=== PATIENT | female | born 1935 | race Caucasian/White ===

== ENCOUNTER 2017-02-04 15:52 | Inpatient (IN) ==
[2017-02-04] MEDS ORDERED: TYLENOL PO PRN (17:38)
[2017-02-04] MEDS ORDERED: NITROGLYCERIN SL PRN (17:38)
[2017-02-04] MEDS ORDERED: SALINE LOCK IV FLUID XX ONE (17:38)
[2017-02-04] MEDS ORDERED: ZOFRAN IV PRN ×2 (17:38→17:42)
[2017-02-04] MEDS ORDERED: NS 1,000 ML IV SCH (17:42)
[2017-02-04] MEDS ORDERED: APRESOLINE IV PRN (17:44)
[2017-02-04 18:32] LABS: HEMATOCRIT 29.6 % (37.0-47.0); HEMOGLOBIN 9.7 g/dL (12.0-16.0); MCH 32.6 PG (27-31); MCHC 32.8 g/dL (33-37); MCV 99.3 FL (81-99); MPV 10.5 FL (7.4-10.4); RBC 2.98 XMIL (4.2-5.4)
[2017-02-04] MEDS: LASIX IV SCH (18:40)
[2017-02-04] MEDS: ASPIRIN EC PO SCH (18:41)
[2017-02-04] MEDS: NITROGLYCERIN TOP SCH (18:41)
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
[2017-02-04 19:05] LABS: ALBUMIN 4.1 g/dL (3.5-5.0); CALCIUM 9.5 mg/dL (8.8-10.2); TOTAL BILIRUBIN 0.6 mg/dL (0.20-1.00); TOTAL PROTEIN 6.9 g/dL (6.3-8.3)
[2017-02-04] MEDS: DUONEB (A & A) INH PRN ×2 (20:06→23:31)
[2017-02-04] MEDS: NORVASC PO SCH (21:20)
--- NOTE | 2017-02-04 21:47 | EKG Report ---
Test Performed on : 02/04/2017 7:58:32 PM Test Reason : CP Blood Pressure : / mmHG Vent. Rate : 053 BPM Atrial Rate : 053 BPM P-R Int : 172 ms QRS Dur : 094 ms QT Int : 532 ms P-R-T Axes : 073 065 -58 degrees QTc Int : 499 ms Sinus bradycardia. Incomplete right bundle branch block Anterior infarct , age undetermined ST \T\ T wave abnormality, consider lateral ischemia Abnormal ECG When compared with ECG of 18-JUN-2014 21:03, Incomplete right bundle branch block is now present Confirmed by Jose Villagran MD ([id number]) on 03/05/2017 7:25:49 PM
[2017-02-05] MEDS: NITROGLYCERIN TOP SCH ×5 (00:16→18:55)
--- NOTE | 2017-02-05 05:56 | EKG Report ---
Test Performed on : 02/05/2017 05:09:54 AM Test Reason : atrial fibrillation/CHF/ASHD Blood Pressure : / mmHG Vent. Rate : 052 BPM Atrial Rate : 052 BPM P-R Int : 192 ms QRS Dur : 096 ms QT Int : 562 ms P-R-T Axes : 075 052 214 degrees QTc Int : 522 ms Sinus bradycardia. Incomplete right bundle branch block Anterior infarct (cited on or before 04-FEB-2017) ST \T\ T wave abnormality, consider lateral ischemia Prolonged QT Abnormal ECG When compared with ECG of 04-FEB-2017 19:58, (Unconfirmed) No significant change was found Confirmed by Jose Villagran MD ([id number]) on 03/05/2017 7:23:55 PM
[2017-02-05] MEDS: LASIX IV SCH ×2 (06:10→18:00)
[2017-02-05] MEDS: PRILOSEC PO SCH (06:10)
[2017-02-05 06:32] LABS: FREE T4 1.34 ng/dL (0.93-1.70)
[2017-02-05 06:43] LABS: HEMATOCRIT 25.6 % (37.0-47.0); HEMOGLOBIN 8.5 g/dL (12.0-16.0); MCH 32.1 PG (27-31); MCHC 33.2 g/dL (33-37); MCV 96.6 FL (81-99); MPV 10.6 FL (7.4-10.4); RBC 2.65 XMIL (4.2-5.4)
[2017-02-05 06:48] LABS: AGAP 11; ALBUMIN 3.5 g/dL (3.5-5.0); ALKALINE PHOSPHATASE 52 U/L (32-104); BUN 17 mg/dL (8-22); CALCIUM 8.8 mg/dL (8.8-10.2); CHLORIDE 102 mmol/L (98-107); COSMO 277; GOT 40 U/L (10-30); GPT 33 U/L (10-36); HDL 60 mg/dL (45-65); LDL 81 mg/dL; SODIUM 138 mmol/L (136-145); TCO2 25 mmol/L (25-35); TOTAL PROTEIN 5.9 g/dL (6.3-8.3); TRIGLYCERIDES 41 mg/dL (35-135); VLDL 8 mg/dL
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
[2017-02-05] MEDS: DUONEB (A & A) INH PRN (07:22)
[2017-02-05] MEDS ORDERED: POTASSIUM CHLORIDE 20% LIQUID PO ONE (07:28)
--- NOTE | 2017-02-05 08:20 | PROGRESS NOTE ---
DATE: 02/05/2017 SUBJECTIVE: Patient notes she is feeling a little bit better. She is having no real cough or congestion. She is lying in the bed with minimal respiratory distress. Denies any chest pains, palpitations currently. OBJECTIVE: Vital Signs: Reviewed. Temperature 98 degrees, pulse 51, respiratory 20, BP 156/58, sat 98% on room air. General: Patient is awake, alert, currently in no real respiratory distress. Neck: Supple. CV: Regular rate. Chest: Relatively clear. No apparent wheezing. Slightly improved air movement from yesterday's exam. Abdomen: Soft. Extremities: Moves all extremities. Trace edema. LABS: Potassium 3.0, hemoglobin 8 and hematocrit 25. BNP 7534. ASSESSMENT: 1. Anemia of chronic disease. Hemoglobin has dropped slightly from 9.7 to 8.5. We will continue to follow. We will recheck this around noon. Certainly if her hemoglobin and hematocrit continues to drop, we will need to consider Gastroenterology evaluation. At this point, this could simply be delusional effect. 2. Hypothyroidism. TSH is elevated and the patient is not normally on Synthroid. We will start 50 mcg of Synthroid and follow. 3. Known coronary artery disease. She is status post drug-eluting stent. Dr. Hinojosa feels as though she needs to be on aspirin and Plavix. We will start aspirin this morning and continue Plavix. 4. We will continue Lasix. Recheck her sodium, potassium in the a.m. Further orders as needed. I appreciate Dr. Hinojosa's assistance. cc: Praveen Espinosa MD
[2017-02-05] MEDS: APRESOLINE PO SCH ×3 (08:56→18:00)
[2017-02-05] MEDS: PLAVIX PO SCH (08:56)
[2017-02-05] MEDS: NORVASC PO SCH ×2 (08:56→20:40)
[2017-02-05] MEDS: ASPIRIN EC PO SCH (08:57)
[2017-02-05 14:21] LABS: HEMATOCRIT 30.1 % (37.0-47.0); HEMOGLOBIN 9.7 g/dL (12.0-16.0); MCH 31.3 PG (27-31); MCHC 32.2 g/dL (33-37); MCV 97.1 FL (81-99); RBC 3.1 XMIL (4.2-5.4)
--- NOTE | 2017-02-05 14:35 | ECHO REPORT ---
ORDER DATE: 02/05/2017 INDICATION: Coronary artery disease, CHF, status post MN with stents placed 3 weeks ago. FINDINGS: 1. Right atrium is mildly enlarged at 4.2 cm. 2. Mild to moderate tricuspid regurgitation. RV systolic pressure of 63 suggesting pulmonary hypertension. 3. Normal RV size and systolic function. 4. Mild pulmonic insufficiency. 5. Mild left atrial enlargement at 4.8 cm. 6. No mitral prolapse. There does appear to be [id number] mitral regurgitation. 7. Normal LV size, end-diastolic dimension of 4.7 cm. There is normal wall thicknesses with a posterior and interventricular septal thickness at 0.9 and 1.0 cm respectively. Normal LV systolic function. The estimated EF is in the 60-65% range. I do not see any clear evidence of segmental wall motion abnormalities. 8. Aortic valve opens well. It is trileaflet. Mild aortic insufficiency. No evidence of stenosis. 9. Aorta appears normal in visualized segments. 10. No pericardial effusion is identified. There is a pleural effusion seen. cc: MD Eran Reich MD Gregory S. Cheatham, MD
[2017-02-05 19:25] LABS: BILIRUBIN URINE NEGATIVE (NEGATIVE); BLOOD URINE NEGATIVE (NEGATIVE); CLARITY CLEAR (CLEAR); COLOR YELLOW; GLUCOSE URINE NEGATIVE (NEGATIVE); LEUKOCYTES URINE 2+ (NEGATIVE); NITRITE URINE NEGATIVE (NEGATIVE); PROTEIN URINE NEGATIVE (NEGATIVE); UROBILINOGEN URINE 4+(12 mg/dL)
[2017-02-05 19:26] LABS: URINE CAST NONE SEEN /LPF; URINE CRYSTAL NONE SEEN /HPF; URINE CULTURE PL NEEDED? YES; URINE EPITHELIAL CELLS <10 /HPF (<10); URINE SOURCE CLEAN CATCH; URINE WBC 20-40 /HPF (<10)
[2017-02-06] MEDS: NITROGLYCERIN TOP SCH ×4 (00:05→18:09)
[2017-02-06] MEDS: LASIX IV SCH ×3 (06:03→19:53)
[2017-02-06] MEDS: PRILOSEC PO SCH (06:03)
[2017-02-06] MEDS: SYNTHROID PO SCH (06:04)
[2017-02-06 06:45] LABS: HEMATOCRIT 28.8 % (37.0-47.0); HEMOGLOBIN 9.4 g/dL (12.0-16.0); MCH 31.8 PG (27-31); MCHC 32.6 g/dL (33-37); MCV 97.3 FL (81-99); MPV 10.7 FL (7.4-10.4); RBC 2.96 XMIL (4.2-5.4)
[2017-02-06 06:51] LABS: ALBUMIN 3.9 g/dL (3.5-5.0); CALCIUM 9.2 mg/dL (8.8-10.2); MAGNESIUM 2.1 mg/dL (1.5-2.7); POTASSIUM 3.4 mmol/L (3.5-5.1); TOTAL BILIRUBIN 0.5 mg/dL (0.20-1.00); TOTAL PROTEIN 6.2 g/dL (6.3-8.3)
--- NOTE | 2017-02-06 08:37 | PROGRESS NOTE ---
DATE: 02/06/2017 SUBJECTIVE: The patient is actually starting to feel a lot better. Denies any chest pain, palpitations. States she is able to sleep last night. Still having some shortness of breath but notes this is tremendously better than on admission. PHYSICAL EXAM: Vital Signs: Temperature 98.0, pulse 53, respiratory rate 18, BP 154/47 sat 98% on room air. The patient is on oxygen at 2 liters. General: Patient awake alert, oriented. She is currently in no respiratory distress. Feeling much better. HEENT: Normocephalic, atraumatic. KHURRAM. Neck: Supple. CV: Regular rate. Chest: Chest clear. Nonlabored. No crackles. Abdomen: Soft. Extremities: Moves all extremities. Neurologic: No changes. LABS: CBC is normal with a hemoglobin and hematocrit of 9 and 28. CMP with a creatinine mildly elevated at 1.4. Potassium 3.4. ASSESSMENT: 1. Congestive heart failure, systolic, new onset. 2. Known coronary artery disease. 3. Hypothyroidism. PLAN: We will decrease her Lasix from 80 q.12 to 40 q.12 hours and will follow. We we will continue Synthroid, continue blood pressure control. Hopefully home in 1-[address] with [address] Hinojosa. Will continue aspirin and Plavix and will hold EliFlocktory at this point. cc: Praveen Espinosa MD
[2017-02-06] MEDS: PLAVIX PO SCH (09:44)
[2017-02-06] MEDS: ASPIRIN EC PO SCH (09:44)
[2017-02-06] MEDS: NORVASC PO SCH ×2 (09:44→20:44)
[2017-02-06] MEDS: APRESOLINE PO SCH ×3 (09:44→18:09)
[2017-02-07] MEDS: NITROGLYCERIN TOP SCH ×4 (00:23→18:03)
[2017-02-07] MEDS: LASIX IV SCH (06:31)
[2017-02-07] MEDS: PRILOSEC PO SCH (06:31)
[2017-02-07] MEDS: SYNTHROID PO SCH (06:31)
[2017-02-07] MEDS ORDERED: NITROGLYCERIN SL PRN (08:36)
[2017-02-07] MEDS: APRESOLINE PO SCH ×3 (08:37→18:03)
[2017-02-07] MEDS: NORVASC PO SCH ×2 (08:37→20:16)
[2017-02-07] MEDS: PLAVIX PO SCH (08:37)
[2017-02-07] MEDS: ASPIRIN EC PO SCH (08:37)
[2017-02-07] MEDS ORDERED: VANCOMYCIN IV PER PHARMACY MISC SCH (08:45)
[2017-02-07] MEDS ORDERED: ASPIRIN PO SCH (09:00)
[2017-02-07] MEDS ORDERED: PLAVIX PO SCH (09:00)
[2017-02-07 09:27] LABS: HEMATOCRIT 28.9 % (37.0-47.0); HEMOGLOBIN 9.5 g/dL (12.0-16.0); MCH 31.9 PG (27-31); MCHC 32.9 g/dL (33-37); MPV 9.8 FL (7.4-10.4); RBC 2.98 XMIL (4.2-5.4)
[2017-02-07 09:51] LABS: ALBUMIN 3.6 g/dL (3.5-5.0); MAGNESIUM 1.9 mg/dL (1.5-2.7); POTASSIUM 2.8 mmol/L (3.5-5.1); TOTAL BILIRUBIN 0.5 mg/dL (0.20-1.00); TOTAL PROTEIN 6.3 g/dL (6.3-8.3)
[2017-02-07] MEDS ORDERED: VANCOMYCIN 1 GM/NS 1 GM/250 ML IVPB IV SCH (10:00)
[2017-02-07] MEDS: REMERON SOLTAB PO SCH (10:25)
[2017-02-07] MEDS ORDERED: KLOR-CON PO ONE (11:23)
--- NOTE | 2017-02-07 12:54 | PROGRESS NOTE ---
DATE: 02/07/2017 SUBJECTIVE: The patient says she feels a little bit better. She denies any chest pain or palpitations. She states she is having some shortness of breath but this is greatly improved since admission. OBJECTIVE: Vital Signs: Blood pressure is 136/48 with a heart rate of 68, respirations are 16, temperature is 98.4 degrees with room air saturation of 98%. Cardiovascular: Regular rate and rhythm. S1 and S2 appreciated. Pulmonary: Breath sounds are clear with no increased work of breathing noted. Gastrointestinal: Soft, nontender, nondistended. Bowel sounds in all 4 quadrants. Neurologic: She is alert and oriented x3 with cranial nerves 2-12 grossly intact. LABS: WBC is 5.9, with a hemoglobin of 9.5, hematocrit 28.9, and platelets of 208,000. Sodium is 133, potassium is 2.8, with BUN 20, creatinine 1.5 and a glucose of 132. ASSESSMENT: 1. Congestive heart failure, systolic, new onset. 2. Known coronary artery disease. 3. Hypothyroid. 4. Hypokalemia. PLAN: We will continue with diuresis. Continue her Synthroid and her other medications. We will supplement her potassium and recheck labs in the morning. Dictated by CASTRO Leon for Praveen Espinosa MD cc: CASTRO Leon MD
--- NOTE | 2017-02-07 16:56 | PROGRESS NOTE ---
DATE: 02/07/2017 SUBJECTIVE: The patient is without any new complaints. In fact, states overall she feels better. She is having less shortness of breath. She is having some right foot pain. It is different than when she came to the hospital. Notes that she is able to ambulate to the restroom and back. PHYSICAL EXAMINATION: Vital Signs: Reviewed. She is afebrile. Vital signs are stable. General: She is awake, alert, oriented. Blood pressure normal. Heart rate 80. General: Patient is awake, alert, oriented. She is currently in no real respiratory distress. She is pleasant to talk with. HEENT: Normocephalic, atraumatic. KHURRAM. Neck: Supple. Cardiovascular: Regular rate. Chest: Relatively clear. Abdomen: Soft. Extremities: Moves all extremities. Neurologic: No focal changes. ASSESSMENT AND PLAN: 1. Gram positive cocci in urine. She is not currently on antibiotics, as she was having no urinary symptoms. This certainly could be a contaminant, although given the growth, we will place her on vancomycin until we get a culture. 2. Systolic congestive heart failure, improved. We will change to p.o. Lasix. 3. Coronary artery disease. 4. Hypokalemia, replaced. 5. Foot pain, uncertain etiology. We will check her electrolytes and follow. cc: Praveen Espinosa MD
[2017-02-07] MEDS: DUONEB (A & A) INH PRN (19:45)
[2017-02-07] MEDS ORDERED: MEVACOR PO SCH (21:00)
[2017-02-07] MEDS ORDERED: AMBIEN PO SCH (21:00)
[2017-02-08] MEDS: NITROGLYCERIN TOP SCH ×3 (00:13→12:44)
[2017-02-08] MEDS: SYNTHROID PO SCH (06:13)
[2017-02-08 06:41] LABS: CALCIUM 9.1 mg/dL (8.8-10.2); POTASSIUM 3.6 mmol/L (3.5-5.1)
[2017-02-08] MEDS ORDERED: NEXIUM PO SCH (07:00)
[2017-02-08] MEDS ORDERED: LEVAQUIN PO SCH (09:00)
[2017-02-08] MEDS ORDERED: LASIX PO SCH (09:00)
[2017-02-08] MEDS: NORVASC PO SCH (09:32)
[2017-02-08] MEDS: PLAVIX PO SCH (09:33)
[2017-02-08] MEDS: ASPIRIN EC PO SCH (09:33)
[2017-02-08] MEDS: APRESOLINE PO SCH ×2 (09:33→12:20)
[2017-02-08] MEDS: REMERON SOLTAB PO SCH (09:33)
[2017-02-08 11:51] VITALS: BP 148/41
--- NOTE | 2017-02-08 12:19 | DISCHARGE SUMMARY ---
ADMISSION DATE: 02/04/2017 DISCHARGE DATE: 02/08/2017 DATE OF ADMISSION: 02/04. DATE OF DISCHARGE: 02/08. DISCHARGE DIAGNOSES: 1. Urinary tract infection with enterococcus faecalis sensitive to Levaquin. 2. Congestive heart failure, systolic, new onset, with exacerbation. 3. Known coronary artery disease with a recent stent. 4. Right foot pain, resolved secondary to low potassium. 5. Hypokalemia, resolved. CONSULTATIONS: Cardiology. PROCEDURES: Echo demonstrated an EF of 60 to 65% with moderate tricuspid regurgitation. BRIEF HOSPITAL COURSE: Patient is an 81-year-old female who was admitted as on the [facility]. Treated in the usual fashion. Placed on IV Lasix at 80 mg twice a day, was decreased to 40 twice a day, and then 40 p.o. which she tolerated very well. She was noted to have a low potassium, which was easily replaced. She would have been discharged home 2 days ago, but her urine culture started growing gram- positive cocci. Ultimately, enterococcus faecalis and this morning was noted to be sensitive to Levaquin. And therefore, she will be discharged home. DISPOSITION: The patient will be discharged home. She will continue Levaquin at 500 mg once a day for a total 7 days. She will follow up outpatient in 1 week. We will continue to follow. DISCHARGE MEDICATIONS: We will continue Lasix 40 mg once a day with potassium as needed. No other changes were made on her home medications. She will continue Norvasc 5 mg, aspirin 81, Plavix 75, per Dr. Hinojosa. Hydralazine 25, 3 times a day, Levaquin 50 once a day, Mevacor 40, mirtazapine 15. TIME SPENT: Thirty-five minutes was spent in total care. cc: Praveen Espinosa MD
--- NOTE | 2017-02-09 11:39 | HISTORY AND PHYSICAL ---
CHIEF COMPLAINT: Shortness of breath. HISTORY OF PRESENT ILLNESS: Patient is an 81-year-old female who presented to the office with chief complaint of cough and congestion, shortness of breath, increased work of breathing. Notes that she was not sleeping well at night. States that her symptoms have been gradually worsening over the past couple of days. States she had a stent placed approximately 2-3 weeks ago and had been doing fine until about 2-3 days ago. She actually denies any chest pain or palpitations. Denies any fevers or chills. Denies any GI or issues. PAST MEDICAL HISTORY: 1. Severe coronary artery disease requiring intervention in September of 2009 and again in 2013. She also recently was in the hospital at [facility], [place] and transferred to [place] for atrial fibrillation with RVR, and had another stent placed approximately 3 weeks ago. 2. Hypertension. 3. High cholesterol. 4. Status post mastectomy for breast cancer some years ago. 5. History of an appendectomy. 6. Hemorrhoidectomy. 7. Tonsillectomy. 8. Hysterectomy. SOCIAL HISTORY: She is a . Lives at home, is retired, has 3 grownup children who take excellent care of her. She does not smoke or drink. REVIEW OF SYSTEMS: As noted above. Denies any fevers, chills. Denies any dysuria, frequency, urgency. Denies any polyuria or polydipsia. Denies any skin rashes, weight loss, or weight gain. FAMILY HISTORY: Noncontributory. PHYSICAL EXAMINATION: VITAL SIGNS: Vital signs reviewed. GENERAL: She is awake, alert, oriented. She is in mild respiratory distress. Pleasant to talk with. NECK: Supple. CV: Regular rate. CHEST: Relatively clear. Decreased breath sounds bilaterally. No apparent wheezing. No appreciable crackles. ABDOMEN: Abdomen is soft and nondistended. EXTREMITIES: Moves all extremities. NEUROLOGIC: No focal neurological changes. SKIN: Warm, dry. No rashes. DIAGNOSTIC DATA: Pending. ASSESSMENT: 1. Shortness of breath. Certainly concern for congestive heart failure. The patient does not have a previous history of this. She has recently undergone coronary stenting. 2. Known coronary artery disease. 3. Hypertension. The patient's blood pressure is elevated. We will continue to follow her blood pressures. PLAN: As noted, follow her blood pressure. We will consult cardiology. Get labs, chest x-ray, and follow. cc: Praveen Espinosa MD
== END 2017-02-08 14:25 | disposition home health service (06) ==
LOC: P.DIRADM 15:52 → P.MEDSURG 16:01
PROVIDERS: ADMIT Family Medicine; ATTEND Family Medicine

== ENCOUNTER 2017-02-27 11:25 | Inpatient (IN) ==
[2017-02-27] MEDS ORDERED: SALINE LOCK IV FLUID XX ONE (11:28)
[2017-02-27] MEDS ORDERED: TYLENOL PO PRN (11:30)
[2017-02-27] MEDS ORDERED: ZOFRAN IV PRN (11:30)
[2017-02-27 13:07] LABS: HEMATOCRIT 26.9 % (37.0-47.0); HEMOGLOBIN 8.9 g/dL (12.0-16.0); MCH 30.3 PG (27-31); MCHC 33.1 g/dL (33-37); MCV 91.5 FL (81-99); MPV 10.3 FL (7.4-10.4); RBC 2.94 XMIL (4.2-5.4)
[2017-02-27 13:08] LABS: POTASSIUM 4.3 mmol/L (3.5-5.1)
[2017-02-27] MEDS ORDERED: ASPIRIN PO ONE (13:29)
[2017-02-27] MEDS ORDERED: LOPRESSOR PO ONE (13:29)
[2017-02-27 13:48] LABS: CK INDEX 8.1 (0.0-2.5); CK-MB 19.73 ng/mL (0.0-5.0)
[2017-02-27] MEDS: LASIX IV SCH ×2 (14:05→23:17)
[2017-02-27] MEDS ORDERED: LOVENOX SUBQ SCH (19:00)
[2017-02-27 20:25] LABS: BILIRUBIN URINE NEGATIVE (NEGATIVE); BLOOD URINE NEGATIVE (NEGATIVE); CLARITY CLEAR (CLEAR); COLOR YELLOW; GLUCOSE URINE NEGATIVE (NEGATIVE); LEUKOCYTES URINE NEGATIVE (NEGATIVE); NITRITE URINE NEGATIVE (NEGATIVE); PROTEIN URINE NEGATIVE (NEGATIVE); URINE CAST NONE SEEN /LPF; URINE CRYSTAL NONE SEEN /HPF; URINE EPITHELIAL CELLS <10 /HPF (<10); URINE SOURCE CATH; UROBILINOGEN URINE NORMAL
[2017-02-27 20:26] LABS: URINE CULTURE PL NEEDED? NO
[2017-02-28 03:59] VITALS: BP 128/62
[2017-02-28 05:59] LABS: HEMATOCRIT 23.1 % (37.0-47.0); HEMOGLOBIN 7.7 g/dL (12.0-16.0); MCH 30.3 PG (27-31); MCHC 33.3 g/dL (33-37); MCV 90.9 FL (81-99); MPV 11.1 FL (7.4-10.4); RBC 2.54 XMIL (4.2-5.4)
[2017-02-28 06:13] LABS: CALCIUM 8.4 mg/dL (8.8-10.2); POTASSIUM 3.4 mmol/L (3.5-5.1)
[2017-02-28] MEDS ORDERED: LOVENOX SUBQ SCH (07:00)
== END 2017-02-28 10:38 | disposition short-term general hospital (02) ==
LOC: P.DIRADM 11:25 → P.MEDSURG 11:45 → P.ICU 19:04
PROVIDERS: ADMIT Family Medicine; ATTEND Family Medicine